=== PATIENT | male | born 1950 | race Hispanic/Latino ===

== ENCOUNTER 2016-08-13 13:39 | Emergency (ER) | payer OTHER ==
[2016-08-13 13:44] VITALS: TEMP 99.8
--- NOTE | 2016-08-13 14:17 | ED PDOC ---
HPI: General Adult Time Seen by Provider: 08/13/16 13:57 Chief Complaint (Nursing): Substance Abuse History Per: Patient, EMS Additional Complaint(s): [facility] [id number] today he got on a bus and suddenly felt lightheaded and syncopized. Reports that he has not taken any of his medications since yesterday as he depleted his supply. As per EMS pt. was found unresponsive while on bus and had pinpoint pupils and was given Narcan and pt. regained full consciousness. Denies chest pain, SOB, headache, trauma, weakness. Offers no complaints at this time. Against Medical Advice - AMA Patient Left Against Medical Advice: The patient declines admission to the hospital and wishes to leave the Emergency Department. This action is against my medical advice. This decision was made with informed refusal. The patient was told that admission to the hospital is necessary. Explanation of the reasons why were discussed. The risks of leaving were explained to the patient and include, but are not limited to, worsening of known or currently unknown conditions, permanent disability and from undiagnosed or untreated conditions. The patient has the capacity to make this informed decision and understands my explanation of the current medical problem and risks of leaving. The patient voluntarily accepts these risks and signed an AMA form documenting our conversation. The patient was given the opportunity to ask questions and reconsider. The patient was encouraged to return to the Emergency Department at any time for further care. Past Medical History Reviewed: Historical Data, Nursing Documentation, Vital Signs Vital Signs: Last Vital Signs Temp 99.8 F H 08/13/16 13:41 Pulse 88 08/13/16 18:22 Resp 16 08/13/16 18:22 BP 141/89 08/13/16 18:22 Pulse Ox 100 08/13/16 18:22 - Medical History PMH: Diabetes, HTN - Family History Family History: States: No Known Family Hx - Allergies Allergies/Adverse Reactions: Allergies Allergy/AdvReac Type Severity Reaction Status Date / Time No Known Allergies Allergy Verified 08/13/16 13:40 Review of Systems ROS Statement: Except As Marked, All Systems Reviewed And Found Negative Physical Exam - Reviewed Nursing Documentation Reviewed: Yes Vital Signs Reviewed: Yes - Physical Exam Appears: Positive for: Well, Non-toxic, No Acute Distress Head Exam: Positive for: ATRAUMATIC, NORMAL INSPECTION, NORMOCEPHALIC Skin: Positive for: Normal Color, Warm. Negative for: Rash Eye Exam: Positive for: EOMI, Normal appearance, PERRL ENT: Positive for: Normal ENT Inspection Neck: Positive for: Normal, Painless ROM Cardiovascular/Chest: Positive for: Regular Rate, Rhythm Respiratory: Positive for: CNT, Normal Breath Sounds Gastrointestinal/Abdominal: Positive for: Normal Exam, Soft. Negative for: Tenderness Back: Positive for: Normal Inspection Extremity: Positive for: Normal ROM Neurologic/Psych: Positive for: Alert, Oriented - Laboratory Results Result Diagrams: 08/13/16 14:52 08/13/16 14:52 - ECG O2 Sat by Pulse Oximetry: 94 Pulse Ox Interpretation: Abnormal - Radiology X-Ray: Interpreted by Me (CXR) - Progress ED Course And Treament: Labs ordered. Pt. placed on monitor. CT head w/o contrast ordered. EKG ordered. CT head w/o contrast: nothing acute. CT chest angio: no central PE. Case d/w Dr. Mack who agrees that pt. requires admission. Pt. informed of results and plan but states he does not want to stay and he will f/u with PMD instead. Pt. encouraged to stay but is still going to sign out AMA. Disposition - Clinical Impression Clinical Impression: Leukocytosis, Syncope, Left against medical advice - Patient ED Disposition Is Patient to be Admitted: No - Disposition Disposition: Against Medical Advice Disposition Time: 18:13 Condition: STABLE Instructions: Syncope (ED), Leukocytosis (ED), Against Medical Advice (ED)
[2016-08-13 14:58] LABS: RBC URINE 4 /hpf (0-3); URINE BACTERIA FEW (<OCC); URINE BILIRUBIN NEGATIVE (NEGATIVE); URINE BLOOD NEGATIVE (NEGATIVE); URINE COLOR YELLOW (YELLOW); URINE GLUCOSE (UA) >=500 mg/dL (Normal); URINE KETONE NEGATIVE (NEGATIVE); URINE LEUKOCYTE ESTERASE NEG Leu/uL (Negative); URINE PROTEIN 30 mg/dL (NEGATIVE); URINE UROBILINOGEN 0.2-1.0 mg/dL (0.2-1.0); WBC URINE 2 /hpf (0-5)
[2016-08-13 15:04] LABS: BASO # 0.1 K/uL (0.0-0.2); BASO % 0.4 % (0.0-2.0); EOS # 0.1 K/uL (0.0-0.7); EOS % 0.3 % (0.0-4.0); HEMATOCRIT 48.4 % (35.0-51.0); LYMPH # 0.9 K/uL (1.0-4.3); LYMPH % 4.1 % (20.0-40.0); MEAN CELL VOLUME 88.5 fl (80.0-94.0); MEAN CORPUSCULAR HGB CONC 31.7 g/dL (33.0-37.0); MEAN PLATELET VOLUME 9.6 fl (7.2-11.7); MONO # 1.7 K/uL (0.0-0.8); MONO % 7.3 % (0.0-10.0); NEUT # 19.8 K/uL (1.8-7.0); NEUT % 87.9 % (50.0-75.0); PLATELET COUNT 191 K/uL (130-400); RED CELL DISTRIBUTION WIDTH 15.1 % (11.5-14.5); WHITE BLOOD COUNT 22.6 K/uL (4.8-10.8)
--- NOTE | 2016-08-13 15:08 | RAD ---
HISTORY: hypoxia COMPARISON: No prior. FINDINGS: LUNGS: Elevation right hemidiaphragm possibly due to eventration. The PLEURA: No significant pleural effusion identified, no pneumothorax apparent. CARDIOVASCULAR: Heart size upper limits of normal. Aorta is slightly ectatic and uncoiled. OSSEOUS STRUCTURES: No significant abnormalities. VISUALIZED UPPER ABDOMEN: Normal. OTHER FINDINGS: None. IMPRESSION: No acute consolidation. . Elevation right hemidiaphragm possibly due to eventration
[2016-08-13 15:14] LABS: ALB/GLOB RATIO 1.2 (1.0-2.1); ALCOHOL SERUM < 10 mg/dl (0-10); ALKALINE PHOSPHATASE 105 U/L (38-126); ALT/SGPT 32 U/L (21-72); AST/SGOT 32 U/L (17-59); BILIRUBIN,TOTAL 0.6 mg/dl (0.2-1.3); BLOOD UREA NITROGEN 28 mg/dl (9-20); CALCIUM 9.5 mg/dL (8.4-10.2); CARBON DIOXIDE 25 mmol/L (22-30); CHLORIDE 105 mmol/L (98-107); GFR AFRICAN-AMERICAN > 60; GLUCOSE,RANDOM 175 mg/dL (75-110); POTASSIUM 4.4 MMOL/L (3.6-5.0); SODIUM 145 mmol/l (132-148); TOTAL PROTEIN 8.8 G/DL (6.3-8.2)
--- NOTE | 2016-08-13 15:26 | CT ---
PROCEDURE: CT HEAD WITHOUT CONTRAST. HISTORY: AMS COMPARISON: None available. TECHNIQUE: Axial computed tomography images were obtained through the head/brain without intravenous contrast. Radiation dose: Total exam DLP = 1232.39 mGy-cm. This CT exam was performed using one or more of the following dose reduction techniques: Automated exposure control, adjustment of the mA and/or kV according to patient size, and/or use of iterative reconstruction technique. FINDINGS: HEMORRHAGE: No acute parenchymal, subarachnoid nor extra-axial hemorrhage. BRAIN: No evidence of large acute infarct Suspect minimal chronic periventricular white matter ischemic changes. . No obvious parenchymal nor extra-axial mass or collection. Mild generalized volume loss. VENTRICLES: Mild asymmetry of the lateral ventricles left-sided which is slightly more prominent than the right felt to represent a anatomic variation. CALVARIUM: There are no acute calvarial fractures PARANASAL SINUSES: Unremarkable as visualized. No significant inflammatory changes. MASTOID AIR CELLS: Unremarkable as visualized. No inflammatory changes. OTHER FINDINGS: None. IMPRESSION: No acute intracranial hemorrhage. Suspect minimal chronic periventricular white matter ischemic changes. Mild generalized volume loss.
[2016-08-13 15:38] LABS: NEUTROPHIL 93 % (42-75); TOTAL CELLS COUNTED 100
[2016-08-13 15:40] LABS: VENOUS BLOOD GAS BASE EXCESS 1.9 mmol/L (0.0-2.0); VENOUS BLOOD GAS PCO2 55 mmHg (40-60); VENOUS BLOOD PH 7.33 (7.32-7.43)
[2016-08-13] MEDS ORDERED: Iodixanol 320 MG/ML 100 ML BOTTLE IV ONE (17:08)
[2016-08-13] MEDS ORDERED: Sodium Chloride 0.9% 100 ML ONE (17:08)
--- NOTE | 2016-08-13 18:02 | CT ---
PROCEDURE: CT Chest with contrast (Pulmonary Angiogram) HISTORY: elevated d-dimer; hypoxia, palpitations COMPARISON: None available. TECHNIQUE: Axial computed tomography images were obtained of the chest in the pulmonary arterial phase of enhancement. Coronal and sagittal reformatted images were created and reviewed. Intravenous contrast dose: 98 cc Visipaque 320 contrast material Radiation dose: Total exam DLP = 557.61 mGy-cm. This CT exam was performed using one or more of the following dose reduction techniques: Automated exposure control, adjustment of the mA and/or kV according to patient size, and/or use of iterative reconstruction technique. FINDINGS: PULMONARY ARTERIES: Scan following injection somewhat delayed with dense opacification of the arterial circulation limiting evaluation of the pulmonary arteries to some degree. The pulmonary trunk, right and left main, lobar, segmental and proximal subsegmental branches of the pulmonary arteries are well opacified with no definitive filling defects seen to suggest acute central pulmonary embolus. Pulmonary trunk measures approximately 3.1 cm. AORTA: The ascending thoracic aorta measures approximately 3.4 cm and descending thoracic aorta measures approximately pacs 2.8 cm. . LUNGS: Vague areas of mosaic ground-glass opacities in the posterior lung zones could represent sequela of small airway disease and or air trapping. Small parenchymal cyst left upper lobe nonspecific. . Minor linear scarring left lingular region. . There are no obvious parenchymal masses or nodules seen. PLEURAL SPACES: Unremarkable. No effusion or pneuomothorax. HEART: Heart is enlarged. No significant pericardial effusion. . LYMPH NODES: There are a few small nonspecific mediastinal lymph nodes none of which appear pathologically enlarged. K. y no significant mediastinal adenopathy. BONES, CHEST WALL: Unremarkable. The vertebral bodies exhibit relatively normal stature aside from a few scattered fish-mouth endplate deformities in the upper thoracic region. Small sclerotic lesion within the posterior superior corner of the T8 segment possibly representing bone island or osteoma. Followup interval could be performed to assess stability. OTHER FINDINGS: Central airways are midline and patent. No obvious endobronchial lesions. Small hiatal hernia. Note made of apparent layering gravel - calculi within the dependent portion of the gallbladder. IMPRESSION: Slightly limited study as described. No evidence of acute central pulmonary embolus. Cardiomegaly. Mosaic appearance mildly affecting the posterior lung zamudio suggesting air trapping and/or sequela small airway disease. Clinical correlation recommended. Small parenchymal cyst left upper lobe nonspecific. Cholelithiasis. See above discussion for additional findings details and recommendations.
[2016-08-13 18:24] VITALS: BP 141/89; PULSE 88; RESP 16
[2016-08-13 19:29] VITALS: O2SAT 94
== END 2016-08-13 18:23 | disposition left against medical advice (07) ==
LOC: H.ER 13:39
DX: R41.82 Altered mental status, unspecified (principal); R55 Syncope and collapse; D72.829 Elevated white blood cell count, unspecified; I10 Essential (primary) hypertension; E11.9 Type 2 diabetes mellitus without complications

== ENCOUNTER 2016-09-24 13:23 | Emergency (ER) | payer OTHER ==
--- NOTE | 2016-09-24 15:01 | ED PDOC ---
HPI: Psych/Substance Abuse Time Seen by Provider: 09/24/16 13:23 Chief Complaint (Nursing): Substance Abuse Chief Complaint (Provider): Substance Abuse History Per: Patient History/Exam Limitations: no limitations Onset/Duration Of Symptoms: Mins (prior to arrival) Current Symptoms Are (Timing): Still Present Additional Complaint(s): Mundo Leija is a 65 year old male with previous history of substance abuse, who presents to the emergency department via EMS for an evaluation after police found him under the influence prior to arrival. Stated he took a yellow pill for treatment of his diabetic neuropathy earlier today associated with some trouble breathing, numbness and tingling of both legs. Denies chest pain, headaches, abdominal pain, nausea, vomiting, or ingesting narcotics. EMS noted that patient was nodding off during evaluation and transportation process. PMD: None provided Past Medical History Reviewed: Historical Data, Nursing Documentation, Vital Signs Vital Signs: Last Vital Signs Temp 102 F H 09/24/16 13:26 Pulse 123 H 09/24/16 13:26 Resp 22 09/24/16 13:26 BP 130/63 09/24/16 13:26 Pulse Ox 98 09/24/16 13:26 - Medical History PMH: Diabetes, HTN - Family History Family History: States: No Known Family Hx - Social History Current smoker - smoking cessation education provided: No Alcohol: Occasional - Immunization History Hx Tetanus Toxoid Vaccination: No Hx Influenza Vaccination: No Hx Pneumococcal Vaccination: No - Home Medications Home Medications: Ambulatory Orders Medication Instructions Recorded Bisoprolol [Zebeta] 5 mg PO BID 09/15/16 Insulin Glargine, Recombina 40 unit SC DAILY 09/15/16 [Lantus] MetFORMIN [glucOPHAGE] 1,000 mg PO BID 09/15/16 Pioglitazone [Actos] 15 mg PO DAILY 09/15/16 Ramipril [Altace] 10 mg PO DAILY 09/15/16 Rosuvastatin Calcium [Crestor] 5 mg PO DAILY 09/15/16 - Allergies Allergies/Adverse Reactions: Allergies Allergy/AdvReac Type Severity Reaction Status Date / Time No Known Allergies Allergy Verified 08/13/16 13:40 Review of Systems ROS Statement: Except As Marked, All Systems Reviewed And Found Negative Constitutional: Positive for: Other (substance intoxication) Cardiovascular: Negative for: Chest Pain Respiratory: Positive for: Other (some dyspnea) Gastrointestinal: Negative for: Nausea, Vomiting, Abdominal Pain Neurological: Positive for: Numbness (and tingling of lower extremities bilaterally). Negative for: Headache Physical Exam - Reviewed Nursing Documentation Reviewed: Yes Vital Signs Reviewed: Yes - Physical Exam Appears: Positive for: Well, Non-toxic, No Acute Distress Head Exam: Positive for: ATRAUMATIC, NORMAL INSPECTION, NORMOCEPHALIC Skin: Positive for: Normal Color, Warm, Dry Eye Exam: Positive for: Other (pupils constricted 3mm). Negative for: PERRL ENT: Positive for: Normal ENT Inspection (moist mucous membranes) Neck: Positive for: Normal, Painless ROM, Supple Cardiovascular/Chest: Positive for: Regular Rate, Rhythm. Negative for: Murmur Respiratory: Positive for: Normal Breath Sounds. Negative for: Crackles, Rales , Rhonchi, Wheezing Gastrointestinal/Abdominal: Positive for: Normal Exam, Bowel Sounds, Soft. Negative for: Tenderness, Mass Extremity: Positive for: Normal ROM. Negative for: Pedal Edema, Deformity Neurologic/Psych: Positive for: Alert (sitting up and responsive), Oriented (x3) - ECG O2 Sat by Pulse Oximetry: 98 (RA) Pulse Ox Interpretation: Normal Medical Decision Making Medical Decision Making: Initial Impression: Substance intoxication; History of substance abuse Initial Plan: * pending clinical sobriety Scribe Attestation: Documented by Alaina Seo, acting as a scribe for Daisy Freire MD. Provider Scribe Attestation: All medical record entries made by the Scribe were at my direction and personally dictated by me. I have reviewed the chart and agree that the record accurately reflects my personal performance of the history, physical exam, medical decision making, and the department course for this patient. I have also personally directed, reviewed, and agree with the discharge instructions and disposition. Disposition - Clinical Impression Clinical Impression: Medication adverse effect - Patient ED Disposition Is Patient to be Admitted: No Doctor Will See Patient In The: Office Counseled Patient/Family Regarding: Diagnosis, Need For Followup - Disposition Disposition: Routine/Home Disposition Time: 16:20 Condition: STABLE Instructions: Adverse Drug Reaction (ED) - POA Present On Arrival: None
[2016-09-24 17:28] VITALS: TEMP 98
[2016-09-24 18:38] VITALS: BP 132/78; PULSE 88; RESP 14; O2SAT 100
== END 2016-09-24 18:17 | disposition home or self-care (01) ==
LOC: H.ER 13:23
DX: T88.7XXA Unspecified adverse effect of drug or medicament, initial encounter (principal); E11.40 Type 2 diabetes mellitus with diabetic neuropathy, unspecified; I10 Essential (primary) hypertension; Z79.4 Long term (current) use of insulin; Z79.899 Other long term (current) drug therapy

== ENCOUNTER 2016-12-02 13:58 | Inpatient (IN) | payer OTHER ==
[2016-12-02] MEDS ORDERED: Naloxone 0.4 mg/ml Inj (Adult) IVP STA ×2 (14:11→16:52)
[2016-12-02] MEDS ORDERED: Sodium Chloride 0.9% 1,000 ML IV ONE (14:45)
[2016-12-02 14:49] LABS: ALCOHOL SERUM < 10 mg/dl (0-10); ALKALINE PHOSPHATASE 107 U/L (38-126); ALT/SGPT 19 U/L (21-72); AST/SGOT 43 U/L (17-59); BILIRUBIN,TOTAL 0.8 mg/dl (0.2-1.3); BLOOD UREA NITROGEN 24 mg/dl (9-20); CALCIUM 9.5 mg/dL (8.4-10.2); CHLORIDE 104 mmol/L (98-107); GFR AFRICAN-AMERICAN > 60; GLUCOSE,RANDOM 396 mg/dL (75-110); SODIUM 142 mmol/l (132-148); TOTAL PROTEIN 9.1 G/DL (6.3-8.2)
[2016-12-02 14:53] LABS: ALB/GLOB RATIO 1.1 (1.0-2.1)
[2016-12-02 14:54] LABS: BASO # 0.2 K/uL (0.0-0.2); BASO % 0.6 % (0.0-2.0); EOS # 0.2 K/uL (0.0-0.7); EOS % 0.8 % (0.0-4.0); HEMATOCRIT 51.3 % (35.0-51.0); LYMPH # 7.1 K/uL (1.0-4.3); LYMPH % 28.4 % (20.0-40.0); MEAN CORPUSCULAR HEMOGLOBIN 28.9 pg (27.0-31.0); MEAN PLATELET VOLUME 9.9 fl (7.2-11.7); MONO % 8.1 % (0.0-10.0); NEUT # 15.4 K/uL (1.8-7.0); NEUT % 62.1 % (50.0-75.0); NRBC % 0.1 % (0.0-0.0); RED CELL DISTRIBUTION WIDTH 15.7 % (11.5-14.5); WHITE BLOOD COUNT 24.9 K/uL (4.8-10.8)
[2016-12-02 14:55] LABS: CARBON DIOXIDE 11 mmol/L (22-30)
--- NOTE | 2016-12-02 14:55 | ED PDOC ---
HPI: Altered Mental Status Time Seen by Provider: 12/02/16 14:10 Chief Complaint (Nursing): Altered Mental Status History Per: EMS (patient acutely became unresponsive at the bus [place]. He has intermittent bouts of spontaenous movements responding to his name being called. He has a deep snoring respiration. his pupils are pinpoint) History/Exam Limitations: Intoxication Current Symptoms Are (Timing): Still Present Past Medical History Reviewed: Historical Data, Nursing Documentation, Vital Signs Vital Signs: Last Vital Signs Temp Pulse 117 H 12/02/16 14:03 Resp 12 12/02/16 14:03 BP Pulse Ox 60 L 12/02/16 14:03 - Medical History PMH: Diabetes, HTN - Family History Family History: States: Unknown Family Hx - Social History Drugs: Opiates, Prescription medications - Immunization History Hx Tetanus Toxoid Vaccination: No Hx Influenza Vaccination: No Hx Pneumococcal Vaccination: No - Home Medications Home Medications: Ambulatory Orders Medication Instructions Recorded Bisoprolol [Zebeta] 5 mg PO BID 09/15/16 Insulin Glargine, Recombina 40 unit SC DAILY 09/15/16 [Lantus] MetFORMIN [glucOPHAGE] 1,000 mg PO BID 09/15/16 Pioglitazone [Actos] 15 mg PO DAILY 09/15/16 Ramipril [Altace] 10 mg PO DAILY 09/15/16 Rosuvastatin Calcium [Crestor] 5 mg PO DAILY 09/15/16 - Allergies Allergies/Adverse Reactions: Allergies Allergy/AdvReac Type Severity Reaction Status Date / Time No Known Allergies Allergy Verified 08/13/16 13:40 Review of Systems Review Of Systems: ROS cannot be obtained secondary to pt's inabilty to answer questions. Physical Exam - Reviewed Nursing Documentation Reviewed: Yes Vital Signs Reviewed: Yes - Physical Exam Head Exam: Positive for: ATRAUMATIC, NORMAL INSPECTION, NORMOCEPHALIC Skin: Positive for: Normal Color, Warm, DRY Eye Exam: Positive for: Normal appearance, EOMI, PERRL (pinpoint) ENT: Positive for: Normal ENT Inspection Neck: Positive for: Normal, Painless ROM Cardiovascular/Chest: Positive for: Regular Rate, Rhythm Respiratory: Positive for: Normal Breath Sounds Gastrointestinal/Abdominal: Positive for: Normal Exam, Bowel Sounds, Soft Back: Positive for: Normal Inspection Extremity: Positive for: Normal ROM Neurologic/Psych: Negative for: Alert (patient responded to narcan 0.4mg IVP. ) - Laboratory Results Result Diagrams: 12/02/16 14:03 12/02/16 14:03 - ECG O2 Sat by Pulse Oximetry: 60 Disposition - Clinical Impression Clinical Impression: Substance abuse - Patient ED Disposition Is Patient to be Admitted: Transfer of Care - Disposition Disposition: Transfer of Care Disposition Time: 14:58 Condition: GUARDED Instructions: Abuse of Alcohol (ED), Polysubstance Abuse (ED) Forms: [employer] (Greek) Patient Signed Over To: Katherine Mack Present On Arrival: None
[2016-12-02 14:58] LABS: MEAN CELL VOLUME 96.3 fl (80.0-94.0)
[2016-12-02] MEDS ORDERED: Sodium Chloride 0.9% 1,000 ML IV STA ×2 (15:07→15:54)
[2016-12-02 15:12] LABS: POTASSIUM 3.9 MMOL/L (3.6-5.0)
--- NOTE | 2016-12-02 15:13 | ED PDOC ---
- Laboratory Results Result Diagrams: 12/02/16 14:03 12/02/16 20:27 - ECG O2 Sat by Pulse Oximetry: 60 - Progress ED Course And Treament: Pt sleepy but arousable to verbal stimuli. Medical Decision Making Medical Decision Making: Lab findings c/w DKA, addition IVF and Insulin drip ordered. Case discussed with Dr. Beltran, admit to ICU. Disposition - Clinical Impression Clinical Impression: Narcotic overdose, DKA (diabetic ketoacidoses) - POA Present On Arrival: Poor Glycemic Control - Disposition Disposition: Admitted as In-Patient Disposition Time: 16:16 Condition: GUARDED Addendum Addendum: 12/02/16 15:00 Pt signed out by Dr. Freire pending labs.
[2016-12-02 15:42] LABS: VENOUS BLOOD GAS BASE EXCESS -5.1 mmol/L (0.0-2.0); VENOUS BLOOD GAS PCO2 75 mmHg (40-60); VENOUS BLOOD PH 7.14 (7.32-7.43)
[2016-12-02] MEDS ORDERED: Glucagon Recombinant 1 mg Inj IM PRN (15:44)
[2016-12-02] MEDS ORDERED: Dextrose 50% SYRINGE Inj (50 ml) IV PRN (15:44)
[2016-12-02] MEDS ORDERED: Naloxone 0.4 mg/ml Inj (Adult) ONE (16:54)
[2016-12-02] MEDS ORDERED: Potassium Chl 20 mEq in NS 1,000 ML IV ONE (17:15)
[2016-12-02 17:40] LABS: RBC URINE 10 /hpf (0-3); URINE BACTERIA RARE (<OCC); URINE BILIRUBIN NEGATIVE (NEGATIVE); URINE BLOOD SMALL (NEGATIVE); URINE COLOR AMBER (YELLOW); URINE GLUCOSE (UA) >=500 mg/dL (Normal); URINE KETONE NEGATIVE (NEGATIVE); URINE LEUKOCYTE ESTERASE NEG Leu/uL (Negative); URINE PROTEIN 100 mg/dL (NEGATIVE); URINE UROBILINOGEN 0.2-1.0 mg/dL (0.2-1.0); WBC URINE 3 /hpf (0-5)
--- NOTE | 2016-12-02 17:51 | CT ---
PROCEDURE: CT HEAD WITHOUT CONTRAST. HISTORY: AMS COMPARISON: None available. TECHNIQUE: Axial computed tomography images were obtained through the head/brain without intravenous contrast. Radiation dose: Total exam DLP = 1414.73 mGy-cm. This CT exam was performed using one or more of the following dose reduction techniques: Automated exposure control, adjustment of the mA and/or kV according to patient size, and/or use of iterative reconstruction technique. FINDINGS: HEMORRHAGE: No acute parenchymal, subarachnoid or extra-axial hemorrhage. BRAIN: There is prominent slightly hyperdense appearance of the right cavernous sinus which is felt to be due to head tilt. The possibility of a cavernous sinus abnormality cannot be excluded with followup pre and post-contrast MRI of the brain. Suspect minimal chronic periventricular white matter ischemic changes Mild generalized volume loss. VENTRICLES: Re- demonstrated is asymmetry of the lateral ventricles left-sided which is slightly larger than the right however this is felt to represent an anatomic variant. CALVARIUM: There are no acute calvarial fracture seen. PARANASAL SINUSES: Unremarkable as visualized. No significant inflammatory changes. MASTOID AIR CELLS: Unremarkable as visualized. No inflammatory changes. OTHER FINDINGS: Orbits and contents grossly unremarkable. IMPRESSION: No acute intracranial hemorrhage. There is slightly prominent hyperdense appearance of the right cavernous sinus which is felt to be due to head tilt however the possibility of a cavernous sinus abnormality could be excluded with pre and post-contrast MRI of the brain for further evaluation. Suspect minor chronic periventricular white matter ischemic changes. Mild generalized volume loss. Note these findings were discussed with Dr. Mack at approximately 5:45 p.m. with written down and read back verification.
[2016-12-02] MEDS ORDERED: Gadodiamide 287 MG/ML VIAL (15ML) IV ONE (18:03)
--- NOTE | 2016-12-02 18:41 | CP.CCUPN ---
CCU Subjective - Physician Review Subjective (Free Text): ICU consultation for admission and mgmt: 65M [place], known h/o narcotic abuse with Oxycontin, given one dose of Narcan and awakened, but not enough to give any further reliable information. Most of information here obtained upon chart review and discussion with other physicians. In ER, given 2 liters of saline fluid and started on an insulin drip after being found to have hyperglycemia with acidotic pH; low serum bicarb level and an elevated anion gap. No other concurrent illness found on initial exam. He is known to be noncompliant with his meds. Allergies: NKDA Home meds: Metformin ER, Lantus, Exenatide, Zebeta, Altace, Gabapentin Other vitals and I/O's reviewed. Had recurrent low grade temps overnight. ROS: No other pertinent negs or positives obtainable on 10+ system review. PMSFH: All Nursing and physician documentation reviewed to date; no new pertinent info noted relevant to current medical problems. MAJOR PROBLEMS: 1. Altered mental status 2 Narcotic Substance Abuse 2. DKA 3. Dehydration 4. Morbid obesity 5. h/o HTN PLAN: 1. Replete potassium, then start Insulin and insulin infusion. Would continue OVF s and insulin drip until anion gap normalizes. 2. CT Brain 3. Neurochecks, Seizure precautions, HOB elevation. 4. Check serum Osmo, follow repeat K levels, check repeat serial Lactates ( doubt septic shock physiology ) till normal, check Mag/Phos levels. 5. More Narcan if he remains somnolent and poorly arousable, watch for need for airway protection. 6. Watch for substance abuse withdrawal symptoms. CCU Objective - Vital Signs / Intake & Output Vital Signs (Last 4 hours): Vital Signs Pulse Resp BP Pulse Ox 12/02/16 17:24 60 L 12/02/16 17:02 124 H 14 136/89 100 - Physical Exam Physical Exam Limitations: Positive for: Altered Mental Status, Intoxication Head: Positive for: Normocephalic Pupils: Positive for: PERRL Extroacular Muscles: Positive for: EOMI Conjunctiva: Positive for: Injected. Negative for: Icteric Mouth: Positive for: Moist Mucous Membranes Neck: Negative for: JVD, Lymphadenopathy, Bruit Respiratory/Chest: Positive for: Decreased Breath Sounds. Negative for: Accessory Muscle Use, Wheezes Cardiovascular: Positive for: Regular Rate and Rhythm (distant S1S2), Tachycardic. Negative for: Murmurs, Rub Abdomen: Positive for: Normal Bowel Sounds, Other (severely obese). Negative for: Tenderness, Distention Lower Extremity: Positive for: Edema (bilateral edema +1-2), NORMAL PULSES. Negative for: CALF TENDERNESS, Cyanosis Neurological: Positive for: GCS=15, Motor Func Grossly Intact, Normal Sensory Function Skin: Positive for: Warm. Negative for: Rashes Other physical findings (Free Text): Left knee scar - Medications Active Medications: Active Medications Generic Name Dose Route Start Last Admin Trade Name Freq PRN Reason Stop Dose Admin Dextrose 0 ml 12/02/16 15:44 Dextrose 50% Inj IV STAT PRN Hyglycemia Protocol Protocol Dextrose 0 gm 12/02/16 15:44 Glutose 15 PO ONCE PRN Hypoglycemia Protocol Protocol Glucagon 0 mg 12/02/16 15:44 Glucagen Diagnostic Kit IM STAT PRN Hypoglycemia Protocol Protocol Insulin Human Regular 100 101 mls @ 10.1 mls/hr 12/02/16 15:45 12/02/16 16:44 units/ Sodium Chloride IV 4 mls/hr .Q10H ARSEN Administration Protocol 10 UNITS/HR Potassium Chloride/Sodium Chloride 1,000 mls @ 125 mls/hr 12/02/16 17:15 17:44 Potassium Chl 20 Meq In Ns IV 12/03/16 01:14 125 mls/hr .Q8H ONE Administration - Patient Studies Lab Studies: Lab Studies 12/02/16 12/02/16 12/02/16 Range/Units 18:30 17:27 17:11 POC Glucose (mg/dL) 165 H (65-110) mg/dL Urine Color Suzan (YELLOW) Urine Clarity Cloudy (Clear) Urine pH 5.0 (5.0-8.0) Ur Specific [place] 1.023 (1.003-1.030) Urine Protein 100 (NEGATIVE) mg/dL Urine Glucose (UA) >=500 (Normal) mg/dL Urine Ketones Negative (NEGATIVE) mg/dL Urine Blood Small (NEGATIVE) Urine Nitrate Negative (NEGATIVE) Urine Bilirubin Negative (NEGATIVE) Urine Urobilinogen 0.2-1.0 (0.2-1.0) mg/dL Ur Leukocyte Esterase Neg (Negative) Cindy/uL Urine RBC (Auto) 10 H (0-3) /hpf Urine Microscopic WBC 3 (0-5) /hpf Ur Squamous Epith Cells 2 (0-5) /hpf Urine Bacteria Rare (<OCC) Urine Opiates Screen Positive H (NEGATIVE) Urine Methadone Screen Negative (NEGATIVE) Ur Barbiturates Screen Negative (NEGATIVE) Ur Phencyclidine Scrn Negative (NEGATIVE) Ur Amphetamines Screen Negative (NEGATIVE) U Benzodiazepines Scrn Negative (NEGATIVE) U Oth Cocaine Metabols Negative (NEGATIVE) U Cannabinoids Screen Negative (NEGATIVE) Laboratory Results - last 24 hr 12/02/16 12/02/16 12/02/16 17:11 17:27 18:30 POC Glucose (mg/dL) 165 H Urine Color Suzan Urine Clarity Cloudy Urine pH 5.0 Ur Specific [place] 1.023 Urine Protein 100 Urine Glucose (UA) >=500 Urine Ketones Negative Urine Blood Small Urine Nitrate Negative Urine Bilirubin Negative Urine Urobilinogen 0.2-1.0 Ur Leukocyte Esterase Neg Urine RBC (Auto) 10 H Urine Microscopic WBC 3 Ur Squamous Epith Cells 2 Urine Bacteria Rare Urine Opiates Screen Positive H Urine Methadone Screen Negative Ur Barbiturates Screen Negative Ur Phencyclidine Scrn Negative Ur Amphetamines Screen Negative U Benzodiazepines Scrn Negative U Oth Cocaine Metabols Negative U Cannabinoids Screen Negative Radiology Interpretations (Free Text): CXR ( my interp): clear lung zamudio. Fingerstick Blood Sugar Results: 200 Review of Systems - Review of Systems All systems: reviewed and no additional remarkable complaints except (as above) Critical Care Progress Note - Extremities/Vascular Does the Patient have a Central Venous Catheter?: No Does the Patient need a Central Venous Catheter?: No Does the Patient have a Lantigua Catheter?: No Does the Patient need a Lantigua Catheter?: No - Prophylaxis GI Prophylaxis GI: Not Indicated - Prophylaxis DVT Prophylaxis DVT: SCDs - Nutrition Nutrition: Nutrition Category Date Time Status Consistent Carbohydrate [DIET] Diets 12/02/16 Dinner Active
[2016-12-02 20:26] VITALS: BMI 44.6
[2016-12-02 20:44] LABS: BLOOD UREA NITROGEN 28 mg/dl (9-20); CALCIUM 8.8 mg/dL (8.4-10.2); CARBON DIOXIDE 20 mmol/L (22-30); CHLORIDE 110 mmol/L (98-107); GFR AFRICAN-AMERICAN > 60; GLUCOSE,RANDOM 141 mg/dL (75-110); POTASSIUM 4.6 MMOL/L (3.6-5.0); SODIUM 144 mmol/l (132-148)
[2016-12-03] MEDS ORDERED: Dextrose 5%/0.9% NS 1,000 ML IV SCH (02:30)
[2016-12-03 05:35] LABS: HEMATOCRIT 42.5 % (35.0-51.0); MEAN CELL VOLUME 91.2 fl (80.0-94.0); MEAN CORPUSCULAR HEMOGLOBIN 29.1 pg (27.0-31.0); MEAN CORPUSCULAR HGB CONC 31.9 g/dL (33.0-37.0); RED CELL DISTRIBUTION WIDTH 15.6 % (11.5-14.5); WHITE BLOOD COUNT 14.7 K/uL (4.8-10.8)
[2016-12-03 05:46] LABS: ALB/GLOB RATIO 1.2 (1.0-2.1); ALKALINE PHOSPHATASE 85 U/L (38-126); ALT/SGPT 34 U/L (21-72); AST/SGOT 40 U/L (17-59); BILIRUBIN,TOTAL 0.5 mg/dl (0.2-1.3); BLOOD UREA NITROGEN 27 mg/dl (9-20); CALCIUM 8.8 mg/dL (8.4-10.2); CARBON DIOXIDE 26 mmol/L (22-30); CHLORIDE 110 mmol/L (98-107); GFR AFRICAN-AMERICAN > 60; GLUCOSE,RANDOM 137 mg/dL (75-110); MAGNESIUM 2.2 MG/DL (1.6-2.3); PHOSPHOROUS 4.1 mg/dl (2.5-4.5); POTASSIUM 4.6 MMOL/L (3.6-5.0); SODIUM 146 mmol/l (132-148); TOTAL PROTEIN 7.8 G/DL (6.3-8.2)
--- NOTE | 2016-12-03 07:22 | CP.CCUPN ---
CCU Subjective - Physician Review Events Since Last Encounter (Free Text): 12/03/16 08:21 The patient was Seen/interviewed and examined by me at the bedside during ICU round, Medical records reviewed and Management issues were discussed and formulated with the house staff. Awake, comfortable, NAD Alert, follows commands BP elevated, home medication resumed Afebrile No CP/SOB BS better, Anion gap down to 15, and Bicarb level up 11-->20-->26 resumed Home Lantus and Pioglitazone Will start PO diet, switch IV fluids and Discontinue insulin drip Patient scheduled for Brain MRI to evaluate for abnormal head CT scan 12/03/16 08:28 12/02/2016: CT HEAD WITHOUT CONTRAST. IMPRESSION: No acute intracranial hemorrhage. There is slightly prominent hyperdense appearance of the right cavernous sinus which is felt to be due to head tilt however the possibility of a cavernous sinus abnormality could be excluded with pre and post-contrast MRI of the brain for further evaluation. Suspect minor chronic periventricular white matter ischemic changes. Mild generalized volume loss. CCU Objective - Vital Signs / Intake & Output Vital Signs (Last 4 hours): Vital Signs Temp Pulse Resp BP Pulse Ox 12/03/16 06:00 83 14 145/87 99 12/03/16 04:00 98.3 F 86 17 140/90 97 Intake and Output (Last 8hrs): Intake & Output 12/02/16 12/03/16 12/03/16 22:59 06:59 14:59 Intake Total 250 1377 Output Total 500 Balance 250 877 Weight 285 lb Intake: IV 250 1377 Oral 0 Output: Urine 500 Urine, Voided 500 - Physical Exam Head: Positive for: Normocephalic Pupils: Positive for: PERRL Extroacular Muscles: Positive for: EOMI Conjunctiva: Positive for: Injected. Negative for: Icteric Mouth: Positive for: Moist Mucous Membranes Neck: Negative for: JVD, Lymphadenopathy, Bruit Respiratory/Chest: Positive for: Decreased Breath Sounds. Negative for: Accessory Muscle Use, Wheezes Cardiovascular: Positive for: Regular Rate and Rhythm (distant S1S2), Tachycardic. Negative for: Murmurs, Rub Abdomen: Positive for: Normal Bowel Sounds, Other (severely obese). Negative for: Tenderness, Distention Lower Extremity: Positive for: Edema (bilateral edema +1-2), NORMAL PULSES. Negative for: CALF TENDERNESS, Cyanosis Neurological: Positive for: GCS=15, Motor Func Grossly Intact, Normal Sensory Function Skin: Positive for: Warm. Negative for: Rashes - Medications Active Medications: Active Medications Generic Name Dose Route Start Last Admin Trade Name Freq PRN Reason Stop Dose Admin Dextrose 0 ml 12/02/16 15:44 Dextrose 50% Inj IV STAT PRN Hyglycemia Protocol Protocol Dextrose 0 gm 12/02/16 15:44 Glutose 15 PO ONCE PRN Hypoglycemia Protocol Protocol Glucagon 0 mg 12/02/16 15:44 Glucagen Diagnostic Kit IM STAT PRN Hypoglycemia Protocol Protocol Insulin Human Regular 100 101 mls @ 10.1 mls/hr 12/02/16 15:45 12/02/16 16:44 units/ Sodium Chloride IV 4 mls/hr .Q10H ARSEN Administration Protocol 10 UNITS/HR Dextrose/Sodium Chloride 1,000 mls @ 125 mls/hr 12/03/16 02:30 12/03/16 02:47 Dextrose 5%/0.9% Ns 1000 Ml IV 12/04/16 02:29 125 mls/hr .Q8H ARSEN Administration - Patient Studies Lab Studies: Lab Studies 12/03/16 12/03/16 12/03/16 Range/Units 06:43 05:12 05:00 WBC (4.8-10.8) K/uL RBC (4.40-5.90) Mil/uL Hgb (12.0-18.0) g/dL Hct (35.0-51.0) % MCV (80.0-94.0) fl MCH (27.0-31.0) pg MCHC (33.0-37.0) g/dL RDW (11.5-14.5) % Plt Count (130-400) K/uL Sodium (132-148) mmol/l Potassium (3.6-5.0) MMOL/L Chloride (98-107) mmol/L Carbon Dioxide (22-30) mmol/L Anion Gap (10-20) BUN (9-20) mg/dl Creatinine (0.8-1.5) mg/dL Est GFR ( Amer) Est GFR (Non-Af Amer) POC Glucose (mg/dL) 133 H 142 H (65-110) mg/dL Random Glucose (75-110) mg/dL Serum Osmolality 308 H (272-300) mosm/kg Lactic Acid (0.7-2.1) MMOL/L Calcium (8.4-10.2) mg/dL Phosphorus (2.5-4.5) mg/dl Magnesium (1.6-2.3) MG/DL Total Bilirubin (0.2-1.3) mg/dl AST (17-59) U/L ALT (21-72) U/L Alkaline Phosphatase (38-126) U/L Total Protein (6.3-8.2) G/DL Albumin (3.5-5.0) g/dL Globulin (2.2-3.9) gm/dL Albumin/Globulin Ratio (1.0-2.1) Urine Color (YELLOW) Urine Clarity (Clear) Urine pH (5.0-8.0) Ur Specific [place] (1.003-1.030) Urine Protein (NEGATIVE) mg/dL Urine Glucose (UA) (Normal) mg/dL Urine Ketones (NEGATIVE) mg/dL Urine Blood (NEGATIVE) Urine Nitrate (NEGATIVE) Urine Bilirubin (NEGATIVE) Urine Urobilinogen (0.2-1.0) mg/dL Ur Leukocyte Esterase (Negative) Cindy/uL Urine RBC (Auto) (0-3) /hpf Urine Microscopic WBC (0-5) /hpf Ur Squamous Epith Cells (0-5) /hpf Urine Bacteria (<OCC) Urine Opiates Screen (NEGATIVE) Urine Methadone Screen (NEGATIVE) Ur Barbiturates Screen (NEGATIVE) Ur Phencyclidine Scrn (NEGATIVE) Ur Amphetamines Screen (NEGATIVE) U Benzodiazepines Scrn (NEGATIVE) U Oth Cocaine Metabols (NEGATIVE) U Cannabinoids Screen (NEGATIVE) 12/03/16 12/03/16 12/03/16 Range/Units 05:00 05:00 04:23 WBC 14.7 H (4.8-10.8) K/uL RBC 4.66 (4.40-5.90) Mil/uL Hgb 13.6 (12.0-18.0) g/dL Hct 42.5 (35.0-51.0) % MCV 91.2 D (80.0-94.0) fl MCH 29.1 (27.0-31.0) pg MCHC 31.9 L (33.0-37.0) g/dL RDW 15.6 H (11.5-14.5) % Plt Count 140 D (130-400) K/uL Sodium 146 (132-148) mmol/l Potassium 4.6 (3.6-5.0) MMOL/L Chloride 110 H (98-107) mmol/L Carbon Dioxide 26 (22-30) mmol/L Anion Gap 15 (10-20) BUN 27 H (9-20) mg/dl Creatinine 1.2 (0.8-1.5) mg/dL Est GFR ( Amer) > 60 Est GFR (Non-Af Amer) > 60 POC Glucose (mg/dL) 121 H (65-110) mg/dL Random Glucose 137 H (75-110) mg/dL Serum Osmolality (272-300) mosm/kg Lactic Acid (0.7-2.1) MMOL/L Calcium 8.8 (8.4-10.2) mg/dL Phosphorus 4.1 (2.5-4.5) mg/dl Magnesium 2.2 (1.6-2.3) MG/DL Total Bilirubin 0.5 (0.2-1.3) mg/dl AST 40 (17-59) U/L ALT 34 (21-72) U/L Alkaline Phosphatase 85 (38-126) U/L Total Protein 7.8 (6.3-8.2) G/DL Albumin 4.2 (3.5-5.0) g/dL Globulin 3.5 (2.2-3.9) gm/dL Albumin/Globulin Ratio 1.2 (1.0-2.1) Urine Color (YELLOW) Urine Clarity (Clear) Urine pH (5.0-8.0) Ur Specific [place] (1.003-1.030) Urine Protein (NEGATIVE) mg/dL Urine Glucose (UA) (Normal) mg/dL Urine Ketones (NEGATIVE) mg/dL Urine Blood (NEGATIVE) Urine Nitrate (NEGATIVE) Urine Bilirubin (NEGATIVE) Urine Urobilinogen (0.2-1.0) mg/dL Ur Leukocyte Esterase (Negative) Cindy/uL Urine RBC (Auto) (0-3) /hpf Urine Microscopic WBC (0-5) /hpf Ur Squamous Epith Cells (0-5) /hpf Urine Bacteria (<OCC) Urine Opiates Screen (NEGATIVE) Urine Methadone Screen (NEGATIVE) Ur Barbiturates Screen (NEGATIVE) Ur Phencyclidine Scrn (NEGATIVE) Ur Amphetamines Screen (NEGATIVE) U Benzodiazepines Scrn (NEGATIVE) U Oth Cocaine Metabols (NEGATIVE) U Cannabinoids Screen (NEGATIVE) 12/03/16 12/03/16 12/03/16 Range/Units 03:22 02:25 01:30 WBC (4.8-10.8) K/uL RBC (4.40-5.90) Mil/uL Hgb (12.0-18.0) g/dL Hct (35.0-51.0) % MCV (80.0-94.0) fl MCH (27.0-31.0) pg MCHC (33.0-37.0) g/dL RDW (11.5-14.5) % Plt Count (130-400) K/uL Sodium (132-148) mmol/l Potassium (3.6-5.0) MMOL/L Chloride (98-107) mmol/L Carbon Dioxide (22-30) mmol/L Anion Gap (10-20) BUN (9-20) mg/dl Creatinine (0.8-1.5) mg/dL Est GFR ( Amer) Est GFR (Non-Af Amer) POC Glucose (mg/dL) 98 99 102 (65-110) mg/dL Random Glucose (75-110) mg/dL Serum Osmolality (272-300) mosm/kg Lactic Acid (0.7-2.1) MMOL/L Calcium (8.4-10.2) mg/dL Phosphorus (2.5-4.5) mg/dl Magnesium (1.6-2.3) MG/DL Total Bilirubin (0.2-1.3) mg/dl AST (17-59) U/L ALT (21-72) U/L Alkaline Phosphatase (38-126) U/L Total Protein (6.3-8.2) G/DL Albumin (3.5-5.0) g/dL Globulin (2.2-3.9) gm/dL Albumin/Globulin Ratio (1.0-2.1) Urine Color (YELLOW) Urine Clarity (Clear) Urine pH (5.0-8.0) Ur Specific [place] (1.003-1.030) Urine Protein (NEGATIVE) mg/dL Urine Glucose (UA) (Normal) mg/dL Urine Ketones (NEGATIVE) mg/dL Urine Blood (NEGATIVE) Urine Nitrate (NEGATIVE) Urine Bilirubin (NEGATIVE) Urine Urobilinogen (0.2-1.0) mg/dL Ur Leukocyte Esterase (Negative) Cindy/uL Urine RBC (Auto) (0-3) /hpf Urine Microscopic WBC (0-5) /hpf Ur Squamous Epith Cells (0-5) /hpf Urine Bacteria (<OCC) Urine Opiates Screen (NEGATIVE) Urine Methadone Screen (NEGATIVE) Ur Barbiturates Screen (NEGATIVE) Ur Phencyclidine Scrn (NEGATIVE) Ur Amphetamines Screen (NEGATIVE) U Benzodiazepines Scrn (NEGATIVE) U Oth Cocaine Metabols (NEGATIVE) U Cannabinoids Screen (NEGATIVE) 12/03/16 12/02/16 12/02/16 Range/Units 00:20 23:48 22:25 WBC (4.8-10.8) K/uL RBC (4.40-5.90) Mil/uL Hgb (12.0-18.0) g/dL Hct (35.0-51.0) % MCV (80.0-94.0) fl MCH (27.0-31.0) pg MCHC (33.0-37.0) g/dL RDW (11.5-14.5) % Plt Count (130-400) K/uL Sodium (132-148) mmol/l Potassium (3.6-5.0) MMOL/L Chloride (98-107) mmol/L Carbon Dioxide (22-30) mmol/L Anion Gap (10-20) BUN (9-20) mg/dl Creatinine (0.8-1.5) mg/dL Est GFR ( Amer) Est GFR (Non-Af Amer) POC Glucose (mg/dL) 110 114 H 111 H (65-110) mg/dL Random Glucose (75-110) mg/dL Serum Osmolality (272-300) mosm/kg Lactic Acid (0.7-2.1) MMOL/L Calcium (8.4-10.2) mg/dL Phosphorus (2.5-4.5) mg/dl Magnesium (1.6-2.3) MG/DL Total Bilirubin (0.2-1.3) mg/dl AST (17-59) U/L ALT (21-72) U/L Alkaline Phosphatase (38-126) U/L Total Protein (6.3-8.2) G/DL Albumin (3.5-5.0) g/dL Globulin (2.2-3.9) gm/dL Albumin/Globulin Ratio (1.0-2.1) Urine Color (YELLOW) Urine Clarity (Clear) Urine pH (5.0-8.0) Ur Specific [place] (1.003-1.030) Urine Protein (NEGATIVE) mg/dL Urine Glucose (UA) (Normal) mg/dL Urine Ketones (NEGATIVE) mg/dL Urine Blood (NEGATIVE) Urine Nitrate (NEGATIVE) Urine Bilirubin (NEGATIVE) Urine Urobilinogen (0.2-1.0) mg/dL Ur Leukocyte Esterase (Negative) Cindy/uL Urine RBC (Auto) (0-3) /hpf Urine Microscopic WBC (0-5) /hpf Ur Squamous Epith Cells (0-5) /hpf Urine Bacteria (<OCC) Urine Opiates Screen (NEGATIVE) Urine Methadone Screen (NEGATIVE) Ur Barbiturates Screen (NEGATIVE) Ur Phencyclidine Scrn (NEGATIVE) Ur Amphetamines Screen (NEGATIVE) U Benzodiazepines Scrn (NEGATIVE) U Oth Cocaine Metabols (NEGATIVE) U Cannabinoids Screen (NEGATIVE) 12/02/16 12/02/16 12/02/16 Range/Units 20:27 20:27 20:17 WBC (4.8-10.8) K/uL RBC (4.40-5.90) Mil/uL Hgb (12.0-18.0) g/dL Hct (35.0-51.0) % MCV (80.0-94.0) fl MCH (27.0-31.0) pg MCHC (33.0-37.0) g/dL RDW (11.5-14.5) % Plt Count (130-400) K/uL Sodium 144 (132-148) mmol/l Potassium 4.6 (3.6-5.0) MMOL/L Chloride 110 H (98-107) mmol/L Carbon Dioxide 20 L (22-30) mmol/L Anion Gap 19 (10-20) BUN 28 H (9-20) mg/dl Creatinine 1.4 (0.8-1.5) mg/dL Est GFR ( Amer) > 60 Est GFR (Non-Af Amer) 51 POC Glucose (mg/dL) (65-110) mg/dL Random Glucose 141 H (75-110) mg/dL Serum Osmolality 308 H (272-300) mosm/kg Lactic Acid 1.1 (0.7-2.1) MMOL/L Calcium 8.8 (8.4-10.2) mg/dL Phosphorus (2.5-4.5) mg/dl Magnesium (1.6-2.3) MG/DL Total Bilirubin (0.2-1.3) mg/dl AST (17-59) U/L ALT (21-72) U/L Alkaline Phosphatase (38-126) U/L Total Protein (6.3-8.2) G/DL Albumin (3.5-5.0) g/dL Globulin (2.2-3.9) gm/dL Albumin/Globulin Ratio (1.0-2.1) Urine Color (YELLOW) Urine Clarity (Clear) Urine pH (5.0-8.0) Ur Specific [place] (1.003-1.030) Urine Protein (NEGATIVE) mg/dL Urine Glucose (UA) (Normal) mg/dL Urine Ketones (NEGATIVE) mg/dL Urine Blood (NEGATIVE) Urine Nitrate (NEGATIVE) Urine Bilirubin (NEGATIVE) Urine Urobilinogen (0.2-1.0) mg/dL Ur Leukocyte Esterase (Negative) Cindy/uL Urine RBC (Auto) (0-3) /hpf Urine Microscopic WBC (0-5) /hpf Ur Squamous Epith Cells (0-5) /hpf Urine Bacteria (<OCC) Urine Opiates Screen (NEGATIVE) Urine Methadone Screen (NEGATIVE) Ur Barbiturates Screen (NEGATIVE) Ur Phencyclidine Scrn (NEGATIVE) Ur Amphetamines Screen (NEGATIVE) U Benzodiazepines Scrn (NEGATIVE) U Oth Cocaine Metabols (NEGATIVE) U Cannabinoids Screen (NEGATIVE) 12/02/16 12/02/16 12/02/16 Range/Units 19:53 18:30 17:33 WBC (4.8-10.8) K/uL RBC (4.40-5.90) Mil/uL Hgb (12.0-18.0) g/dL Hct (35.0-51.0) % MCV (80.0-94.0) fl MCH (27.0-31.0) pg MCHC (33.0-37.0) g/dL RDW (11.5-14.5) % Plt Count (130-400) K/uL Sodium (132-148) mmol/l Potassium (3.6-5.0) MMOL/L Chloride (98-107) mmol/L Carbon Dioxide (22-30) mmol/L Anion Gap (10-20) BUN (9-20) mg/dl Creatinine (0.8-1.5) mg/dL Est GFR ( Amer) Est GFR (Non-Af Amer) POC Glucose (mg/dL) 141 H 165 H 200 H (65-110) mg/dL Random Glucose (75-110) mg/dL Serum Osmolality (272-300) mosm/kg Lactic Acid (0.7-2.1) MMOL/L Calcium (8.4-10.2) mg/dL Phosphorus (2.5-4.5) mg/dl Magnesium (1.6-2.3) MG/DL Total Bilirubin (0.2-1.3) mg/dl AST (17-59) U/L ALT (21-72) U/L Alkaline Phosphatase (38-126) U/L Total Protein (6.3-8.2) G/DL Albumin (3.5-5.0) g/dL Globulin (2.2-3.9) gm/dL Albumin/Globulin Ratio (1.0-2.1) Urine Color (YELLOW) Urine Clarity (Clear) Urine pH (5.0-8.0) Ur Specific [place] (1.003-1.030) Urine Protein (NEGATIVE) mg/dL Urine Glucose (UA) (Normal) mg/dL Urine Ketones (NEGATIVE) mg/dL Urine Blood (NEGATIVE) Urine Nitrate (NEGATIVE) Urine Bilirubin (NEGATIVE) Urine Urobilinogen (0.2-1.0) mg/dL Ur Leukocyte Esterase (Negative) Cindy/uL Urine RBC (Auto) (0-3) /hpf Urine Microscopic WBC (0-5) /hpf Ur Squamous Epith Cells (0-5) /hpf Urine Bacteria (<OCC) Urine Opiates Screen (NEGATIVE) Urine Methadone Screen (NEGATIVE) Ur Barbiturates Screen (NEGATIVE) Ur Phencyclidine Scrn (NEGATIVE) Ur Amphetamines Screen (NEGATIVE) U Benzodiazepines Scrn (NEGATIVE) U Oth Cocaine Metabols (NEGATIVE) U Cannabinoids Screen (NEGATIVE) 12/02/16 12/02/16 Range/Units 17:27 17:11 WBC (4.8-10.8) K/uL RBC (4.40-5.90) Mil/uL Hgb (12.0-18.0) g/dL Hct (35.0-51.0) % MCV (80.0-94.0) fl MCH (27.0-31.0) pg MCHC (33.0-37.0) g/dL RDW (11.5-14.5) % Plt Count (130-400) K/uL Sodium (132-148) mmol/l Potassium (3.6-5.0) MMOL/L Chloride (98-107) mmol/L Carbon Dioxide (22-30) mmol/L Anion Gap (10-20) BUN (9-20) mg/dl Creatinine (0.8-1.5) mg/dL Est GFR ( Amer) Est GFR (Non-Af Amer) POC Glucose (mg/dL) (65-110) mg/dL Random Glucose (75-110) mg/dL Serum Osmolality (272-300) mosm/kg Lactic Acid (0.7-2.1) MMOL/L Calcium (8.4-10.2) mg/dL Phosphorus (2.5-4.5) mg/dl Magnesium (1.6-2.3) MG/DL Total Bilirubin (0.2-1.3) mg/dl AST (17-59) U/L ALT (21-72) U/L Alkaline Phosphatase (38-126) U/L Total Protein (6.3-8.2) G/DL Albumin (3.5-5.0) g/dL Globulin (2.2-3.9) gm/dL Albumin/Globulin Ratio (1.0-2.1) Urine Color [place] (YELLOW) Urine Clarity Cloudy (Clear) Urine pH 5.0 (5.0-8.0) Ur Specific [place] 1.023 (1.003-1.030) Urine Protein 100 (NEGATIVE) mg/dL Urine Glucose (UA) >=500 (Normal) mg/dL Urine Ketones Negative (NEGATIVE) mg/dL Urine Blood Small (NEGATIVE) Urine Nitrate Negative (NEGATIVE) Urine Bilirubin Negative (NEGATIVE) Urine Urobilinogen 0.2-1.0 (0.2-1.0) mg/dL Ur Leukocyte Esterase Neg (Negative) Cindy/uL Urine RBC (Auto) 10 H (0-3) /hpf Urine Microscopic WBC 3 (0-5) /hpf Ur Squamous Epith Cells 2 (0-5) /hpf Urine Bacteria Rare (<OCC) Urine Opiates Screen Positive H (NEGATIVE) Urine Methadone Screen Negative (NEGATIVE) Ur Barbiturates Screen Negative (NEGATIVE) Ur Phencyclidine Scrn Negative (NEGATIVE) Ur Amphetamines Screen Negative (NEGATIVE) U Benzodiazepines Scrn Negative (NEGATIVE) U Oth Cocaine Metabols Negative (NEGATIVE) U Cannabinoids Screen Negative (NEGATIVE) Laboratory Results - last 24 hr 12/02/16 12/02/16 12/02/16 17:11 17:27 17:33 WBC RBC Hgb Hct MCV MCH MCHC RDW Plt Count Sodium Potassium Chloride Carbon Dioxide Anion Gap BUN Creatinine Est GFR ( Amer) Est GFR (Non-Af Amer) POC Glucose (mg/dL) 200 H Random Glucose Serum Osmolality Lactic Acid Calcium Phosphorus Magnesium Total Bilirubin AST ALT Alkaline Phosphatase Total Protein Albumin Globulin Albumin/Globulin Ratio Urine Color [place] Urine Clarity Cloudy Urine pH 5.0 Ur Specific [place] 1.023 Urine Protein 100 Urine Glucose (UA) >=500 Urine Ketones Negative Urine Blood Small Urine Nitrate Negative Urine Bilirubin Negative Urine Urobilinogen 0.2-1.0 Ur Leukocyte Esterase Neg Urine RBC (Auto) 10 H Urine Microscopic WBC 3 Ur Squamous Epith Cells 2 Urine Bacteria Rare Urine Opiates Screen Positive H Urine Methadone Screen Negative Ur Barbiturates Screen Negative Ur Phencyclidine Scrn Negative Ur Amphetamines Screen Negative U Benzodiazepines Scrn Negative U Oth Cocaine Metabols Negative U Cannabinoids Screen Negative 12/02/16 12/02/16 12/02/16 18:30 19:53 20:17 WBC RBC Hgb Hct MCV MCH MCHC RDW Plt Count Sodium Potassium Chloride Carbon Dioxide Anion Gap BUN Creatinine Est GFR ( Amer) Est GFR (Non-Af Amer) POC Glucose (mg/dL) 165 H 141 H Random Glucose Serum Osmolality Lactic Acid 1.1 Calcium Phosphorus Magnesium Total Bilirubin AST ALT Alkaline Phosphatase Total Protein Albumin Globulin Albumin/Globulin Ratio Urine Color Urine Clarity Urine pH Ur Specific [place] Urine Protein Urine Glucose (UA) Urine Ketones Urine Blood Urine Nitrate Urine Bilirubin Urine Urobilinogen Ur Leukocyte Esterase Urine RBC (Auto) Urine Microscopic WBC Ur Squamous Epith Cells Urine Bacteria Urine Opiates Screen Urine Methadone Screen Ur Barbiturates Screen Ur Phencyclidine Scrn Ur Amphetamines Screen U Benzodiazepines Scrn U Oth Cocaine Metabols U Cannabinoids Screen 12/02/16 12/02/16 12/02/16 20:27 20:27 22:25 WBC RBC Hgb Hct MCV MCH MCHC RDW Plt Count Sodium 144 Potassium 4.6 Chloride 110 H Carbon Dioxide 20 L Anion Gap 19 BUN 28 H Creatinine 1.4 Est GFR ( Amer) > 60 Est GFR (Non-Af Amer) 51 POC Glucose (mg/dL) 111 H Random Glucose 141 H Serum Osmolality 308 H Lactic Acid Calcium 8.8 Phosphorus Magnesium Total Bilirubin AST ALT Alkaline Phosphatase Total Protein Albumin Globulin Albumin/Globulin Ratio Urine Color Urine Clarity Urine pH Ur Specific [place] Urine Protein Urine Glucose (UA) Urine Ketones Urine Blood Urine Nitrate Urine Bilirubin Urine Urobilinogen Ur Leukocyte Esterase Urine RBC (Auto) Urine Microscopic WBC Ur Squamous Epith Cells Urine Bacteria Urine Opiates Screen Urine Methadone Screen Ur Barbiturates Screen Ur Phencyclidine Scrn Ur Amphetamines Screen U Benzodiazepines Scrn U Oth Cocaine Metabols U Cannabinoids Screen 12/02/16 12/03/16 12/03/16 23:48 00:20 01:30 WBC RBC Hgb Hct MCV MCH MCHC RDW Plt Count Sodium Potassium Chloride Carbon Dioxide Anion Gap BUN Creatinine Est GFR ( Amer) Est GFR (Non-Af Amer) POC Glucose (mg/dL) 114 H 110 102 Random Glucose Serum Osmolality Lactic Acid Calcium Phosphorus Magnesium Total Bilirubin AST ALT Alkaline Phosphatase Total Protein Albumin Globulin Albumin/Globulin Ratio Urine Color Urine Clarity Urine pH Ur Specific [place] Urine Protein Urine Glucose (UA) Urine Ketones Urine Blood Urine Nitrate Urine Bilirubin Urine Urobilinogen Ur Leukocyte Esterase Urine RBC (Auto) Urine Microscopic WBC Ur Squamous Epith Cells Urine Bacteria Urine Opiates Screen Urine Methadone Screen Ur Barbiturates Screen Ur Phencyclidine Scrn Ur Amphetamines Screen U Benzodiazepines Scrn U Oth Cocaine Metabols U Cannabinoids Screen 12/03/16 12/03/16 12/03/16 02:25 03:22 04:23 WBC RBC Hgb Hct MCV MCH MCHC RDW Plt Count Sodium Potassium Chloride Carbon Dioxide Anion Gap BUN Creatinine Est GFR ( Amer) Est GFR (Non-Af Amer) POC Glucose (mg/dL) 99 98 121 H Random Glucose Serum Osmolality Lactic Acid Calcium Phosphorus Magnesium Total Bilirubin AST ALT Alkaline Phosphatase Total Protein Albumin Globulin Albumin/Globulin Ratio Urine Color Urine Clarity Urine pH Ur Specific [place] Urine Protein Urine Glucose (UA) Urine Ketones Urine Blood Urine Nitrate Urine Bilirubin Urine Urobilinogen Ur Leukocyte Esterase Urine RBC (Auto) Urine Microscopic WBC Ur Squamous Epith Cells Urine Bacteria Urine Opiates Screen Urine Methadone Screen Ur Barbiturates Screen Ur Phencyclidine Scrn Ur Amphetamines Screen U Benzodiazepines Scrn U Oth Cocaine Metabols U Cannabinoids Screen 12/03/16 12/03/16 12/03/16 05:00 05:00 05:00 WBC 14.7 H RBC 4.66 Hgb 13.6 Hct 42.5 MCV 91.2 D MCH 29.1 MCHC 31.9 L RDW 15.6 H Plt Count 140 D Sodium 146 Potassium 4.6 Chloride 110 H Carbon Dioxide 26 Anion Gap 15 BUN 27 H Creatinine 1.2 Est GFR ( Amer) > 60 Est GFR (Non-Af Amer) > 60 POC Glucose (mg/dL) Random Glucose 137 H Serum Osmolality 308 H Lactic Acid Calcium 8.8 Phosphorus 4.1 Magnesium 2.2 Total Bilirubin 0.5 AST 40 ALT 34 Alkaline Phosphatase 85 Total Protein 7.8 Albumin 4.2 Globulin 3.5 Albumin/Globulin Ratio 1.2 Urine Color Urine Clarity Urine pH Ur Specific [place] Urine Protein Urine Glucose (UA) Urine Ketones Urine Blood Urine Nitrate Urine Bilirubin Urine Urobilinogen Ur Leukocyte Esterase Urine RBC (Auto) Urine Microscopic WBC Ur Squamous Epith Cells Urine Bacteria Urine Opiates Screen Urine Methadone Screen Ur Barbiturates Screen Ur Phencyclidine Scrn Ur Amphetamines Screen U Benzodiazepines Scrn U Oth Cocaine Metabols U Cannabinoids Screen 12/03/16 12/03/16 05:12 06:43 WBC RBC Hgb Hct MCV MCH MCHC RDW Plt Count Sodium Potassium Chloride Carbon Dioxide Anion Gap BUN Creatinine Est GFR ( Amer) Est GFR (Non-Af Amer) POC Glucose (mg/dL) 142 H 133 H Random Glucose Serum Osmolality Lactic Acid Calcium Phosphorus Magnesium Total Bilirubin AST ALT Alkaline Phosphatase Total Protein Albumin Globulin Albumin/Globulin Ratio Urine Color Urine Clarity Urine pH Ur Specific [place] Urine Protein Urine Glucose (UA) Urine Ketones Urine Blood Urine Nitrate Urine Bilirubin Urine Urobilinogen Ur Leukocyte Esterase Urine RBC (Auto) Urine Microscopic WBC Ur Squamous Epith Cells Urine Bacteria Urine Opiates Screen Urine Methadone Screen Ur Barbiturates Screen Ur Phencyclidine Scrn Ur Amphetamines Screen U Benzodiazepines Scrn U Oth Cocaine Metabols U Cannabinoids Screen Fingerstick Blood Sugar Results: 133 Review of Systems - Gastrointestinal Gastrointestinal: absent: As Per HPI, Abdominal Pain, Belching, Bloating, Change in Bowel Habits, Change in Stool Character, Coffee Ground Emesis, Constipation, Cramping, Diarrhea, Dyspepsia, Dysphagia, Early Satiety, Excessive Flatus, Fecal Incontinence, Heartburn, Hematemesis, Hematochezia, Loose Stools, Melena, Nausea, Odynophagia, Temesmus, Vomiting, Other, UNREMARKABLE - Genitourinary Genitourinary: absent: As Per HPI, Change in Urinary Stream, Difficulty Urinating, Dysuria, Flank Pain, Hematuria, Pyuria, Nocturia, Urinary Incontinence, Urinary Frequency, Urinary Hesitance, Urinary Urgency, Voiding Freq/Small Amts, Freq UTI, Hx Renal/Bladder Calculi, Hx /Renal Surgery, Bladder Distension, Other, UNREMARKABLE Critical Care Progress Note - Extremities/Vascular Does the Patient have a Central Venous Catheter?: No Does the Patient need a Central Venous Catheter?: No Does the Patient have a Lantigua Catheter?: No Does the Patient need a Lantigua Catheter?: No - Nutrition Nutrition: Nutrition Category Date Time Status Consistent Carbohydrate [DIET] Diets 12/02/16 Dinner Active Assessment/Plan (1) DKA (diabetic ketoacidoses) Current Visit: Yes Status: Acute (2) Narcotic overdose Current Visit: Yes Status: Acute Comment: Awake, Alert, follows commands Neurochecks, Seizure precautions (3) Leukocytosis Current Visit: No Status: Acute (4) HTN (hypertension) Current Visit: Yes Status: Acute Comment: Resumed Bisoprolol 5 mg PO BID and Ramipril at 5 mg daily ( Pt on 10 mg at home ) (5) Syncope Current Visit: No Status: Acute
[2016-12-03 08:03] LABS: THYROID STIMULATING HORMONE 1.18 mIU/ML (0.46-4.68)
--- NOTE | 2016-12-03 08:40 | CARD ---
APPROVED REPORT EKG Measurement Heart [id number] <Conclusion> Sinus tachycardia Right bundle branch block T wave abnormality, consider inferior ischemia Abnormal ECG
[2016-12-03] MEDS ORDERED: Gadodiamide 287 MG/ML VIAL (15ML) IV ONE (09:23)
--- NOTE | 2016-12-03 11:40 | HP ---
CHIEF COMPLAINT: [place] HISTORY OF PRESENT ILLNESS: This is a 65-year-old male known case of diabetes and prescription narcotic abuse with history of overdose, very noncompliant with medication, who [place] and was brought to the emergency room and started waking up after giving naloxone. Currently, the patient is in the ICU, awake and responsive feels hungry, but no other specific complaints, no chest pain and no shortness of breath. REVIEW OF SYSTEMS: Negative for headache, dizziness, syncope, loss of consciousness, chest pain, shortness of breath, nausea, vomiting, diarrhea, constipation, or any new joint or extremity pain. Review of systems of all other organ system is unremarkable. PAST MEDICAL HISTORY: Significant for diabetes, hypertension, obesity, substance abuse, and arthritis. PAST SURGICAL HISTORY: Unremarkable. PERSONAL HISTORY: The patient is currently nonsmoker and nondrinker, but does abuse prescription narcotics. ALLERGIES: THE PATIENT IS NOT ALLERGIC TO ANY MEDICATIONS. FAMILY HISTORY: Noncontributory. PHYSICAL EXAMINATION GENERAL: A well-built and well-nourished, overweight 65-year-old male in no acute distress. VITAL SIGNS: Temperature of 98.3, pulse of 83, respirations of 14, blood pressure of 145/87, and oxygen saturation of 99%. HEENT: Pupils are reactive to light. NECK: No JVD. No thyromegaly. No lymphadenopathy. No nystagmus. Normocephalic and atraumatic skull. HEART: S1 and S2 normal and regular. No significant murmur, gallop or rub is heard. LUNGS: Shows good bilateral air exchange. No rales or rhonchi. ABDOMEN: Soft and nontender. No organomegaly. No fluid. Bowel sounds are present. Examination of the belly is appropriate for the patient's age. Rebound and guarding negative. EXTREMITIES: No edema. No calf swelling. No tenderness. No acute ischemia. CENTRAL NERVOUS SYSTEM: Essentially unchanged. DIAGNOSTIC DATA: Available diagnostic data reviewed. WBC of 14.7, hemoglobin of 13.6, hematocrit of 42.5, and platelets of 140. Sodium of 146, potassium of 4.6, chloride of 110, bicarbonate of 26, BUN of 27, and creatinine of 1.2. SMA-12 is unremarkable. Accu-Cheks are 137, 142, 133, and 143. CAT scan of the head is unremarkable. Chest x-ray is clear. EKG shows right bundle-branch block without any acute ST-T changes. ADMITTING IMPRESSION: Diabetic ketoacidosis,resolving; type 2 diabetes with hyperglycemia; hypertension, morbid obesity, and narcotics abuse. PLAN: As ordered. Case and plan discussed with the patient. Anand Simon MD
--- NOTE | 2016-12-03 12:50 | RAD ---
HISTORY: DKA COMPARISON: No prior. FINDINGS: LUNGS: No active pulmonary disease. PLEURA: No significant pleural effusion identified, no pneumothorax apparent. CARDIOVASCULAR: Normal. OSSEOUS STRUCTURES: No significant abnormalities. VISUALIZED UPPER ABDOMEN: Normal. OTHER FINDINGS: None. IMPRESSION: No active disease.
--- NOTE | 2016-12-03 14:50 | MRI ---
PROCEDURE: MRI BRAIN WITH AND WITHOUT CONTRAST HISTORY: Abnormal CT head COMPARISON: CT brain dated 12/02/2016. TECHNIQUE: Multiplanar, multisequence MR images of the brain were obtained with and without intravenous contrast enhancement. FINDINGS: HEMORRHAGE: None DWI: No evidence of an acute or early subacute infarction. BRAIN PARENCHYMA: No mass,mass effect or edema. No atrophy or chronic microvascular ischemic changes. ENHANCEMENT: No abnormal intracranial enhancement. VENTRICLES: Unremarkable. No hydrocephalus. CRANIUM: Unremarkable. ORBITS: Grossly unremarkable. PARANASAL SINUSES/MASTOIDS: Clear VASCULAR SYSTEM: Tortuous right cavernous internal carotid artery, anatomic variant, likely the explanation of the asymmetry on the recent CT scan of the head. OTHER FINDINGS: None . IMPRESSION: Tortuous right cavernous internal carotid artery, anatomic variant, likely the explanation of the asymmetry on the recent CT scan of the head.
[2016-12-03] MEDS ORDERED: Insulin Detemir 100 Units/ml Inj SC SCH (22:00)
[2016-12-04 05:57] LABS: HEMATOCRIT 40.6 % (35.0-51.0); MEAN CELL VOLUME 89.8 fl (80.0-94.0); MEAN CORPUSCULAR HEMOGLOBIN 28.9 pg (27.0-31.0); MEAN CORPUSCULAR HGB CONC 32.1 g/dL (33.0-37.0); RED CELL DISTRIBUTION WIDTH 14.8 % (11.5-14.5); WHITE BLOOD COUNT 7.2 K/uL (4.8-10.8)
[2016-12-04 06:09] LABS: ALB/GLOB RATIO 1.1 (1.0-2.1); ALKALINE PHOSPHATASE 75 U/L (38-126); ALT/SGPT 32 U/L (21-72); AST/SGOT 35 U/L (17-59); BILIRUBIN,TOTAL 0.7 mg/dl (0.2-1.3); BLOOD UREA NITROGEN 18 mg/dl (9-20); CALCIUM 8.9 mg/dL (8.4-10.2); CARBON DIOXIDE 27 mmol/L (22-30); CHLORIDE 107 mmol/L (98-107); CHOLESTEROL 168 mg/dL (0-199); GFR AFRICAN-AMERICAN > 60; GLUCOSE,RANDOM 120 mg/dL (75-110); POTASSIUM 3.7 MMOL/L (3.6-5.0); SODIUM 143 mmol/l (132-148)
--- NOTE | 2016-12-04 08:58 | CP.CCUPN ---
CCU Subjective - Physician Review Events Since Last Encounter (Free Text): 12/04/16 08:59 The patient was Seen/interviewed and examined by me at the bedside during ICU round, Medical records reviewed and Management issues were discussed and formulated with the house staff. Awake, comfortable, NAD Alert, follows commands BP elevated, home medication resumed Afebrile No CP/SOB BS better, Anion gap down to 13, and Bicarb level up 11-->20-->26-->27 Insulin drip discontinued resumed Home Lantus and Pioglitazone Tolerating PO diet, Off IV fluids and insulin drip Underwent Brain MRI to evaluate for abnormal head CT scan and it was negative CCU Objective - Vital Signs / Intake & Output Vital Signs (Last 4 hours): Vital Signs Temp Pulse Resp BP Pulse Ox 12/04/16 08:05 176/97 H 12/04/16 08:00 97.9 F 89 17 176/92 H 99 12/04/16 06:00 72 14 149/88 97 Intake and Output (Last 8hrs): Intake & Output 12/03/16 12/04/16 12/04/16 22:59 06:59 14:59 Intake Total 540 180 0 Output Total 200 300 Balance 340 -120 0 Intake: IV 0 0 0 Oral 540 180 Output: Urine 200 300 Urine, Voided 200 300 Other: # Voids Urine, Voided 1 # Bowel Movements 1 - Physical Exam Head: Positive for: Atraumatic, Normocephalic. Negative for: Tenderness Pupils: Positive for: PERRL Extroacular Muscles: Positive for: EOMI Conjunctiva: Positive for: Injected. Negative for: Icteric Mouth: Positive for: Moist Mucous Membranes Neck: Positive for: Normal Range of Motion, Trachea Midline. Negative for: JVD , Lymphadenopathy, Bruit Respiratory/Chest: Positive for: Decreased Breath Sounds. Negative for: Accessory Muscle Use, Wheezes Cardiovascular: Positive for: Regular Rate and Rhythm (distant S1S2), Tachycardic. Negative for: Murmurs, Rub Abdomen: Positive for: Normal Bowel Sounds, Other (severely obese). Negative for: Tenderness, Distention Lower Extremity: Positive for: Edema (bilateral edema +1-2), NORMAL PULSES. Negative for: CALF TENDERNESS, Cyanosis Neurological: Positive for: GCS=15, CN II-XII Intact, Speech Normal, Motor Func Grossly Intact, Normal Sensory Function Skin: Positive for: Warm. Negative for: Rashes Psychiatric: Positive for: Alert, Oriented x 3 - Medications Active Medications: Active Medications Generic Name Dose Route Start Last Admin Trade Name Freq PRN Reason Stop Dose Admin Bisoprolol Fumarate 5 mg 12/03/16 09:00 12/04/16 08:05 Zebeta PO 5 mg DAILY ARSEN Administration Dextrose 0 ml 12/02/16 15:44 Dextrose 50% Inj IV STAT PRN Hyglycemia Protocol Protocol Dextrose 0 gm 12/02/16 15:44 Glutose 15 PO ONCE PRN Hypoglycemia Protocol Protocol Glucagon 0 mg 12/02/16 15:44 Glucagen Diagnostic Kit IM STAT PRN Hypoglycemia Protocol Protocol Insulin Human Regular 100 101 mls @ 10.1 mls/hr 12/02/16 15:45 12/03/16 07:00 units/ Sodium Chloride IV 2 units/hr .Q10H ARSEN 2.02 mls/hr Protocol Titration 10 UNITS/HR Insulin Detemir 25 units 12/03/16 22:00 12/03/16 22:11 Levemir SC 25 u HS ARSEN Administration Pioglitazone HCl 15 mg 12/03/16 09:00 12/04/16 08:05 Actos PO 15 mg DAILY ARSEN Administration Ramipril 5 mg 12/03/16 09:00 12/04/16 08:05 Altace PO 5 mg BID ARSEN Administration - Patient Studies Lab Studies: Microbiology Studies 12/02/16 17:25 Blood Culture - Preliminary Blood-Venous NO GROWTH AFTER 24 HOURS Lab Studies 12/04/16 12/04/16 12/04/16 Range/Units 06:32 05:30 05:30 WBC 7.2 D (4.8-10.8) K/uL RBC 4.52 (4.40-5.90) Mil/uL Hgb 13.1 (12.0-18.0) g/dL Hct 40.6 (35.0-51.0) % MCV 89.8 (80.0-94.0) fl MCH 28.9 (27.0-31.0) pg MCHC 32.1 L (33.0-37.0) g/dL RDW 14.8 H (11.5-14.5) % Plt Count 93 L D (130-400) K/uL Sodium 143 (132-148) mmol/l Potassium 3.7 (3.6-5.0) MMOL/L Chloride 107 (98-107) mmol/L Carbon Dioxide 27 (22-30) mmol/L Anion Gap 13 (10-20) BUN 18 (9-20) mg/dl Creatinine 0.8 (0.8-1.5) mg/dL Est GFR ( Amer) > 60 Est GFR (Non-Af Amer) > 60 POC Glucose (mg/dL) 121 H (65-110) mg/dL Random Glucose 120 H (75-110) mg/dL Calcium 8.9 (8.4-10.2) mg/dL Total Bilirubin 0.7 (0.2-1.3) mg/dl AST 35 (17-59) U/L ALT 32 (21-72) U/L Alkaline Phosphatase 75 (38-126) U/L Total Protein 7.0 (6.3-8.2) G/DL Albumin 3.7 (3.5-5.0) g/dL Globulin 3.3 (2.2-3.9) gm/dL Albumin/Globulin Ratio 1.1 (1.0-2.1) Triglycerides 134 (0-149) mg/DL Cholesterol 168 (0-199) mg/dL LDL Cholesterol Direct 117 (0-129) mg/dL HDL Cholesterol 29 L (30-70) MG/DL Vitamin B12 (239-931) pg/mL 12/03/16 12/03/16 12/03/16 Range/Units 22:17 17:29 13:56 WBC (4.8-10.8) K/uL RBC (4.40-5.90) Mil/uL Hgb (12.0-18.0) g/dL Hct (35.0-51.0) % MCV (80.0-94.0) fl MCH (27.0-31.0) pg MCHC (33.0-37.0) g/dL RDW (11.5-14.5) % Plt Count (130-400) K/uL Sodium (132-148) mmol/l Potassium (3.6-5.0) MMOL/L Chloride (98-107) mmol/L Carbon Dioxide (22-30) mmol/L Anion Gap (10-20) BUN (9-20) mg/dl Creatinine (0.8-1.5) mg/dL Est GFR ( Amer) Est GFR (Non-Af Amer) POC Glucose (mg/dL) 114 H 163 H 168 H (65-110) mg/dL Random Glucose (75-110) mg/dL Calcium (8.4-10.2) mg/dL Total Bilirubin (0.2-1.3) mg/dl AST (17-59) U/L ALT (21-72) U/L Alkaline Phosphatase (38-126) U/L Total Protein (6.3-8.2) G/DL Albumin (3.5-5.0) g/dL Globulin (2.2-3.9) gm/dL Albumin/Globulin Ratio (1.0-2.1) Triglycerides (0-149) mg/DL Cholesterol (0-199) mg/dL LDL Cholesterol Direct (0-129) mg/dL HDL Cholesterol (30-70) MG/DL Vitamin B12 (239-931) pg/mL 12/03/16 12/03/16 12/03/16 Range/Units 11:42 10:18 09:14 WBC (4.8-10.8) K/uL RBC (4.40-5.90) Mil/uL Hgb (12.0-18.0) g/dL Hct (35.0-51.0) % MCV (80.0-94.0) fl MCH (27.0-31.0) pg MCHC (33.0-37.0) g/dL RDW (11.5-14.5) % Plt Count (130-400) K/uL Sodium (132-148) mmol/l Potassium (3.6-5.0) MMOL/L Chloride (98-107) mmol/L Carbon Dioxide (22-30) mmol/L Anion Gap (10-20) BUN (9-20) mg/dl Creatinine (0.8-1.5) mg/dL Est GFR ( Amer) Est GFR (Non-Af Amer) POC Glucose (mg/dL) 164 H 172 H 147 H (65-110) mg/dL Random Glucose (75-110) mg/dL Calcium (8.4-10.2) mg/dL Total Bilirubin (0.2-1.3) mg/dl AST (17-59) U/L ALT (21-72) U/L Alkaline Phosphatase (38-126) U/L Total Protein (6.3-8.2) G/DL Albumin (3.5-5.0) g/dL Globulin (2.2-3.9) gm/dL Albumin/Globulin Ratio (1.0-2.1) Triglycerides (0-149) mg/DL Cholesterol (0-199) mg/dL LDL Cholesterol Direct (0-129) mg/dL HDL Cholesterol (30-70) MG/DL Vitamin B12 (239-931) pg/mL 12/03/16 Range/Units 07:00 WBC (4.8-10.8) K/uL RBC (4.40-5.90) Mil/uL Hgb (12.0-18.0) g/dL Hct (35.0-51.0) % MCV (80.0-94.0) fl MCH (27.0-31.0) pg MCHC (33.0-37.0) g/dL RDW (11.5-14.5) % Plt Count (130-400) K/uL Sodium (132-148) mmol/l Potassium (3.6-5.0) MMOL/L Chloride (98-107) mmol/L Carbon Dioxide (22-30) mmol/L Anion Gap (10-20) BUN (9-20) mg/dl Creatinine (0.8-1.5) mg/dL Est GFR ( Amer) Est GFR (Non-Af Amer) POC Glucose (mg/dL) (65-110) mg/dL Random Glucose (75-110) mg/dL Calcium (8.4-10.2) mg/dL Total Bilirubin (0.2-1.3) mg/dl AST (17-59) U/L ALT (21-72) U/L Alkaline Phosphatase (38-126) U/L Total Protein (6.3-8.2) G/DL Albumin (3.5-5.0) g/dL Globulin (2.2-3.9) gm/dL Albumin/Globulin Ratio (1.0-2.1) Triglycerides (0-149) mg/DL Cholesterol (0-199) mg/dL LDL Cholesterol Direct (0-129) mg/dL HDL Cholesterol (30-70) MG/DL Vitamin B12 489 (239-931) pg/mL Laboratory Results - last 24 hr 12/03/16 12/03/16 12/03/16 07:00 09:14 10:18 WBC RBC Hgb Hct MCV MCH MCHC RDW Plt Count Sodium Potassium Chloride Carbon Dioxide Anion Gap BUN Creatinine Est GFR ( Amer) Est GFR (Non-Af Amer) POC Glucose (mg/dL) 147 H 172 H Random Glucose Calcium Total Bilirubin AST ALT Alkaline Phosphatase Total Protein Albumin Globulin Albumin/Globulin Ratio Triglycerides Cholesterol LDL Cholesterol Direct HDL Cholesterol Vitamin B12 489 12/03/16 12/03/16 12/03/16 11:42 13:56 17:29 WBC RBC Hgb Hct MCV MCH MCHC RDW Plt Count Sodium Potassium Chloride Carbon Dioxide Anion Gap BUN Creatinine Est GFR ( Amer) Est GFR (Non-Af Amer) POC Glucose (mg/dL) 164 H 168 H 163 H Random Glucose Calcium Total Bilirubin AST ALT Alkaline Phosphatase Total Protein Albumin Globulin Albumin/Globulin Ratio Triglycerides Cholesterol LDL Cholesterol Direct HDL Cholesterol Vitamin B12 12/03/16 12/04/16 12/04/16 22:17 05:30 05:30 WBC 7.2 D RBC 4.52 Hgb 13.1 Hct 40.6 MCV 89.8 MCH 28.9 MCHC 32.1 L RDW 14.8 H Plt Count 93 L D Sodium 143 Potassium 3.7 Chloride 107 Carbon Dioxide 27 Anion Gap 13 BUN 18 Creatinine 0.8 Est GFR ( Amer) > 60 Est GFR (Non-Af Amer) > 60 POC Glucose (mg/dL) 114 H Random Glucose 120 H Calcium 8.9 Total Bilirubin 0.7 AST 35 ALT 32 Alkaline Phosphatase 75 Total Protein 7.0 Albumin 3.7 Globulin 3.3 Albumin/Globulin Ratio 1.1 Triglycerides 134 Cholesterol 168 LDL Cholesterol Direct 117 HDL Cholesterol 29 L Vitamin B12 12/04/16 06:32 WBC RBC Hgb Hct MCV MCH MCHC RDW Plt Count Sodium Potassium Chloride Carbon Dioxide Anion Gap BUN Creatinine Est GFR ( Amer) Est GFR (Non-Af Amer) POC Glucose (mg/dL) 121 H Random Glucose Calcium Total Bilirubin AST ALT Alkaline Phosphatase Total Protein Albumin Globulin Albumin/Globulin Ratio Triglycerides Cholesterol LDL Cholesterol Direct HDL Cholesterol Vitamin B12 Fingerstick Blood Sugar Results: 121 Review of Systems - Cardiovascular Cardiovascular: absent: As Per HPI, Acrocyanosis, Chest Pain, Chest Pain at Rest , Chest Pain with Activity, Claudication, Diaphoresis, Dyspnea, Dyspnea on Exertion, Edema, Irregular Heart Rhythm, Pain Radiating to Arm/Neck/Jaw, Leg Edema, Leg Ulcers, Lightheadedness, Orthopnea, Palpitations, Paroxysmal Nocturnal Dyspnea, Pedal Edema, Radiating Pain, Rapid Heart Rate, Slow Heart Rate, Syncope, Other, UNREMARKABLE - Respiratory Respiratory: absent: As Per HPI, Cough, Dyspnea, Hemoptysis, Dyspnea on Exertion , Wheezing, Snoring, Stridor, Pain on Inspiration, Chest Congestion, Excessive Mucous Production, Change in Mucous Color, Pain with Coughing, Other, UNREMARKABLE Critical Care Progress Note - Extremities/Vascular Does the Patient have a Central Venous Catheter?: No Does the Patient need a Central Venous Catheter?: No Does the Patient have a Lantigua Catheter?: No Does the Patient need a Lantigua Catheter?: No - Nutrition Nutrition: Nutrition Category Date Time Status Consistent Carbohydrate [DIET] Diets 12/02/16 Dinner Active Assessment/Plan (1) DKA (diabetic ketoacidoses) Current Visit: Yes Status: Acute Comment: Resolved Off Insulin drip Acch check ACHS Restarted on ho,e medications (2) Narcotic overdose Current Visit: Yes Status: Acute Comment: Awake, Alert, follows commands Neurochecks, Seizure precautions (3) Leukocytosis Current Visit: No Status: Acute Comment: WBC down to 7.2 No signs of infection (4) HTN (hypertension) Current Visit: Yes Status: Acute Comment: Resumed Bisoprolol 5 mg PO BID and Ramipril at 5 mg daily, will increase to 10 mg QD (home dose ) (5) Syncope Current Visit: No Status: Acute
--- NOTE | 2016-12-04 09:03 | PN ---
DATE: 12/04/2016 SUBJECTIVE: The patient was seen and examined. Interim events noted. Consults noted and appreciated. The patient remains in intensive care unit and feels okay. No chest pain, no shortness of breath, nausea, or vomiting. PHYSICAL EXAMINATION GENERAL: The patient is in no acute distress. VITAL SIGNS: Stable. HEART: S1 and S2 normal and regular. LUNGS: Good bilateral air exchange. ABDOMEN: Soft and nontender. No organomegaly. No fluid. Bowel sounds are present. EXTREMITIES: No edema. No calf swelling. No tenderness. No acute ischemia. CENTRAL NERVOUS SYSTEM: Essentially unchanged. DIAGNOSTIC DATA: Available diagnostic data reviewed. Telemetry monitoring does not show any significant arrhythmia. ASSESSMENT: Overall, the patient's general medical condition is stable and improving. PLAN: As ordered. Case and plan was discussed with the patient. Anand Simon MD
[2016-12-04 16:54] VITALS: TEMP 98.4; O2SAT 98
[2016-12-04 17:07] VITALS: BP 138/70; PULSE 75; RESP 18
== END 2016-12-04 14:20 | disposition left against medical advice (07) | DRG 917 ==
LOC: H.ER 13:58 → H.EROBSV 15:00 → OBSVTOIN 16:30 → H.ERHOLD 16:30 → H.ICU/CCU 18:18
PROVIDERS: ADMIT Internal Medicine; ATTEND Internal Medicine
DX: T40.601A Poisoning by unspecified narcotics, accidental (unintentional), initial encounter (principal); E13.10 Other specified diabetes mellitus with ketoacidosis without coma; Z68.41 Body mass index [BMI] 40.0-44.9, adult; I10 Essential (primary) hypertension; E66.01 Morbid (severe) obesity due to excess calories; D72.829 Elevated white blood cell count, unspecified; F11.10 Opioid abuse, uncomplicated; Z79.899 Other long term (current) drug therapy; Z91.14 Patient's other noncompliance with medication regimen; Z91.19 Patient's noncompliance with other medical treatment and regimen; M19.90 Unspecified osteoarthritis, unspecified site; Z79.84 Long term (current) use of oral hypoglycemic drugs; R55 Syncope and collapse; Y92.9 Unspecified place or not applicable

== ENCOUNTER 2017-09-25 13:14 | Emergency (ER) | payer OTHER ==
[2017-09-25 13:14] VITALS: BMI 44.6
[2017-09-25 13:28] VITALS: RESP 20; TEMP 99.9; O2SAT 99
--- NOTE | 2017-09-25 15:47 | ED PDOC ---
HPI: Altered Mental Status Time Seen by Provider: 09/25/17 13:35 Chief Complaint (Nursing): Altered Mental Status Chief Complaint (Provider): Altered Mental Status History Per: EMS Onset/Duration Of Symptoms: Mins Current Symptoms Are (Timing): Gone Now Additional History Per: Patient Additional Complaint(s): 66 y/o male brought to the ED by EMS for psychiatric evaluation. As per triage nurse who spoke to EMS, bystander called 911 as patient was acting "bizarre". Patient offers no complaints at this time. Patient states he was not actin bizarre and had actually felt like he was going to pass out and is uncertain if he did. Denies chest pain, shortness of breath, weakness, abdominal pain, suicidal ideation, homicidal ideation, hallucinations, and and other symptoms at this time. PMD: None Provided Past Medical History Reviewed: Historical Data, Nursing Documentation, Vital Signs Vital Signs: Last Vital Signs Temp 99.9 F H 09/25/17 13:19 Pulse Resp 20 09/25/17 13:19 BP Pulse Ox 99 09/25/17 13:19 - Medical History PMH: HTN, Hypercholesterolemia Denies: Diabetes, Hepatitis, HIV, Chronic Kidney Disease, Seizures, Sexually Transmitted Disease - Surgical History Surgical History: No Surg Hx - Family History Family History: States: Unknown Family Hx - Immunization History Hx Tetanus Toxoid Vaccination: No Hx Influenza Vaccination: No Hx Pneumococcal Vaccination: No - Home Medications Home Medications: Ambulatory Orders Medication Instructions Recorded Bisoprolol [Zebeta] 5 mg PO BID 09/15/16 Insulin Glargine, Recombina 40 unit SC HS 09/15/16 [Lantus] Ramipril [Altace] 10 mg PO DAILY 09/15/16 Exenatide Microspheres [Bydureon] 2 mg SC QWK 12/02/16 Gabapentin [Neurontin] 300 mg PO HS 12/02/16 MetFORMIN ER [Glucophage XR] 1,000 mg PO BID 12/02/16 - Allergies Allergies/Adverse Reactions: Allergies Allergy/AdvReac Type Severity Reaction Status Date / Time No Known Allergies Allergy Verified 09/25/17 13:19 Review of Systems ROS Statement: Except As Marked, All Systems Reviewed And Found Negative Constitutional: Negative for: Weakness Cardiovascular: Negative for: Chest Pain Respiratory: Negative for: Shortness of Breath Gastrointestinal: Negative for: Abdominal Pain Psych: Positive for: Other (psychiatric evaluation ). Negative for: Suicidal ideation (or homicidal ideation) Physical Exam - Reviewed Nursing Documentation Reviewed: Yes Vital Signs Reviewed: Yes - Physical Exam Appears: Positive for: No Acute Distress Head Exam: Positive for: ATRAUMATIC, NORMOCEPHALIC Skin: Positive for: Normal Color, Warm, Dry Eye Exam: Positive for: Normal appearance, EOMI, PERRL ENT: Positive for: Normal ENT Inspection Neck: Positive for: Normal, Painless ROM, Supple Cardiovascular/Chest: Positive for: Regular Rate, Rhythm. Negative for: Murmur Respiratory: Positive for: Normal Breath Sounds. Negative for: Respiratory Distress Gastrointestinal/Abdominal: Positive for: Normal Exam, Soft. Negative for: Tenderness Back: Positive for: Normal Inspection Extremity: Positive for: Normal ROM. Negative for: Pedal Edema, Deformity Neurologic/Psych: Positive for: Alert (calm, cooperative), Oriented (x3). Negative for: Motor/Sensory Deficits - ECG O2 Sat by Pulse Oximetry: 99 (RA) Pulse Ox Interpretation: Normal Medical Decision Making Medical Decision Making: Time: 1548 -- Patient evaluated by Dae, squirrel worker, who spoke with Dr. Padilla and cleared patient for discharge. Patient informed that he requires blood work and further diagnostics. Patient refused and wants to sign out AMA. Patient refuses further care, evaluation or treatment in the ER. Patient informed of the reasons for the following and planned treatment, which patient understands, however still refuses. Patient informed of the risk and benefits of treatment. Informed that the risk could include worsening of current conditions, undiagnosed conditions, disability or even . Patient understands the following risk and the benefits of treatment. Patient has the capacity to make decisions and still refuses treatment by RN, PA and ER MD. Scribe Attestation: Documented by Michelle Jordan, acting as a scribe for Rodrigo Linton PA-C. Provider Scribe Attestation: All medical record entries made by the Scribe were at my direction and personally dictated by me. I have reviewed the chart and agree that the record accurately reflects my personal performance of the history, physical exam, medical decision making, and the department course for this patient. I have also personally directed, reviewed, and agree with the discharge instructions and disposition. Disposition - Clinical Impression Clinical Impression: Adjustment disorder, Syncope, Weakness, Left against medical advice - Patient ED Disposition Is Patient to be Admitted: No - Disposition Referrals: [facility] [Outside] Disposition: Against Medical Advice Disposition Time: 15:29 Condition: FAIR Additional Instructions: RETURN TO ED FOR FURTHER EVALUATION Instructions: Adjustment Disorder, Leaving Against Medical Advice, Weakness (ED ) Forms: [employer] (Z[place]ian) Print Language: LATVIAN
[2017-09-25 16:59] VITALS: BP 140/82
== END 2017-09-25 15:30 | disposition left against medical advice (07) ==
LOC: H.ER 13:14
DX: F43.20 Adjustment disorder, unspecified (principal); R55 Syncope and collapse; R53.1 Weakness; I10 Essential (primary) hypertension; Z79.4 Long term (current) use of insulin; E11.9 Type 2 diabetes mellitus without complications; E78.00 Pure hypercholesterolemia, unspecified; Z00.8 Encounter for other general examination